=== PATIENT | female | born 1980 | race Caucasian/White ===

== ENCOUNTER 2019-05-09 15:26 | Emergency (ER) | payer MEDICAID, MEDICARE ==
[2019-05-09 15:49] VITALS: BP 145/92
[2019-05-09] MEDS ORDERED: Ketorolac INJ* 30 MG/ML 1 ML VIAL IM ONE (16:05)
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
== END 2019-05-09 16:42 | disposition home or self-care (01) ==
LOC: UCCORT 15:26
DX: M25.50 Pain in unspecified joint (principal); F17.210 Nicotine dependence, cigarettes, uncomplicated
CPT/HCPCS: 96372; 99211; G0463; J1885